=== PATIENT | male | born 1995 | race Caucasian/White ===

== ENCOUNTER 2017-06-19 08:18 | Emergency (ER) | payer SELFPAY ==
--- NOTE | 2017-06-19 09:09 | EDM.PDOC ---
ED HPI GENERAL MEDICAL PROBLEM - General Chief Complaint: Lower Extremity Injury/Pain Stated Complaint: L ANKLE INJURY/FELL ON ICE Time Seen by Provider: 06/19/17 08:32 Source of Information: Reports: Patient History Limitations: Reports: No Limitations - History of Present Illness INITIAL COMMENTS - FREE TEXT/NARRATIVE: The patient slipped on the ice on his way to work this morning. He hurt his left ankle. He could take a few steps but that made the pain worse. He has no other injuries. Onset: Sudden Duration: Minutes: Location: Reports: Lower Extremity, Left (Ankle) Quality: Reports: Sharp Severity: Moderate Improves with: Reports: Immobilization Worsens with: Reports: Movement Context: Reports: Trauma (Fell on the ice) Associated Symptoms: Reports: No Other Symptoms Left Ankle Pain Score (Numeric/FACES): 8 - Related Data Allergies Allergy/AdvReac Type Severity Reaction Status Date / Time cilantro Allergy Swelling Uncoded 06/19/17 08:28 Home Meds: Home Meds . [No Known Home Meds] 06/19/17 [History] Past Medical History - Past Health History Medical/Surgical History: Denies Medical/Surgical History Social & Family History - Tobacco Use Smoking Status *Q: Never Smoker - Recreational Drug Use Recreational Drug Use: No Review of Systems - Review of Systems Review Of Systems: See Below Constitutional: Reports: No Symptoms Eyes: Reports: No Symptoms Ears: Reports: No Symptoms Nose: Reports: No Symptoms Mouth/Throat: Reports: No Symptoms Respiratory: Reports: No Symptoms Cardiovascular: Reports: No Symptoms GI/Abdominal: Reports: No Symptoms Genitourinary: Reports: No Symptoms Musculoskeletal: Reports: Other (Left ankle pain) ED EXAM, GENERAL - Physical Exam Exam: See Below Exam Limited By: No Limitations General Appearance: Alert, No Apparent Distress Ears: Normal External Exam Nose: Normal Inspection Head: Atraumatic, Normocephalic Neck: Normal Inspection Respiratory/Chest: No Respiratory Distress Extremities: Other (Pain upon palpation to the medal and lateral malleolus with edema to the lateral malleolus) Course - Vital Signs Last Recorded V/S: Last Vital Signs Temp 99.5 F 06/19/17 08:28 Pulse 96 06/19/17 08:28 Resp 15 06/19/17 08:28 BP 152/95 H 06/19/17 08:28 Pulse Ox 97 06/19/17 08:28 - Orders/Labs/Meds Orders: Active Orders 24 hr Category Date Time Status Ankle Min 3V Lt [CR] Stat Exams 06/19/17 08:34 Taken - Re-Assessments/Exams Free Text/Narrative Re-Assessment/Exam: 06/19/17 09:11 His x-ray shows a distal fibular fracture. I will get him in a walking boot but he is to stay off his foot and crutches. He will follow up back at his home. Departure - Departure Time of Disposition: 09:15 Disposition: Home, Self-Care 01 Condition: Good Clinical Impression: Fracture of distal fibula Qualifiers: Encounter type: initial encounter Fracture type: closed Fracture morphology: unspecified fracture morphology Laterality: left Qualified Code(s): S82.832A - Other fracture of upper and lower end of left fibula, initial encounter for closed fracture - Discharge Information Referrals: PCP,None [Primary Care Provider] - Forms: ED Department Discharge, ED Return to Work/School Form Additional Instructions: Ice your ankle for 15 minutes every other hour while awake for 2 days. Try to elevate your ankle above your heart as much as you can for 2 days to reduce the swelling. Take motrin or tylenol for pain. Follow up with an orthopedic surgeon back at your home. Wear the walking boot and use the crutches. Do not put any weight on your leg. Please return if you are worse. - My Orders Last 24 Hours: My Active Orders 06/19/17 08:34 Ankle Min 3V Lt [CR] Stat - Assessment/Plan Last 24 Hours: My Active Orders 06/19/17 08:34 Ankle Min 3V Lt [CR] Stat
--- NOTE | 2017-06-19 09:56 | CR ---
Left ankle: Four views of the left ankle were obtained. Comparison: No previous study. Bony density is seen off the inferior fibula which is likely due to old ununited avulsion injury. Acute fracture is identified within the distal fibular shaft which is best seen on the lateral view and is slightly displaced. Distal tibia appears within normal limits. Soft tissue swelling is identified. No additional abnormality is seen on this exam. Impression: 1. Mildly displaced distal fibular shaft fracture. 2. 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 3. Soft tissue swelling. Diagnostic code #3
== END 2017-06-19 09:33 | disposition home or self-care (01) ==
LOC: JD.ED 08:18
DX: S82.832A Other fracture of upper and lower end of left fibula, initial encounter for closed fracture (principal); Z91.018 Allergy to other foods; W00.0XXA Fall on same level due to ice and snow, initial encounter
CPT/HCPCS: 73610-26-LT; 73610-LT; 99283